=== PATIENT | female | born 1965 | race Caucasian/White ===

== ENCOUNTER → 2019-04-25 | Outpatient (CLI) | payer MEDICARE ==
--- NOTE | 2019-04-25 17:10 | PCVCIMAG ---
EXAM: BILATERAL SUPERFICIAL VENOUS DUPLEX INDICATION: Leg pain and swelling. FINDINGS: Right leg: No thrombus in the common femoral, main femoral, or popliteal veins. These veins are compressible. Right Great Saphenous Vein: At the saphenofemoral junction the diameter is 11.9 mm, in the mid thigh it is 8.1 mm, and in the calf it is 5.5 mm. There is significant venous insufficiency/reflux throughout. Venous insufficiency/reflux duration is 1.6 seconds. Right Small Saphenous Vein: At the saphenopopliteal junction the diameter is 6.4 mm, and in the calf it is 5.6 mm. There is significant venous insufficiency/reflux throughout. Venous insufficiency/reflux duration is 1.6 seconds. There is not a cranial extension present. Left leg: No thrombus in the common femoral, main femoral, or popliteal veins. These veins are compressible. Left Great Saphenous Vein: At the saphenofemoral junction the diameter is 10.2 mm, in the mid thigh it is 9.0 mm, and in the calf it is 7.6 mm. There is significant venous insufficiency/reflux throughout. Venous insufficiency/reflux duration is 1.6 seconds. Left Small Saphenous Vein: At the saphenopopliteal junction the diameter is 6.5 mm, and in the calf it is 5.7 mm. There is significant venous insufficiency/reflux throughout. Venous insufficiency/reflux duration is 2.3 seconds. There is not a cranial extension present. IMPRESSION: Right Great Saphenous Vein: Significant venous insufficiency/reflux is present as noted above. Right Small Saphenous Vein: Significant venous insufficiency/reflux is present as noted above. Left Great Saphenous Vein: Significant venous insufficiency/reflux is present as noted above. Left Small Saphenous Vein: Significant venous insufficiency/reflux is present as noted above. Incidental note is made of venous insufficiency/reflux in the main femoral and popliteal veins bilaterally with reflux duration up to 1.6 seconds. LOC:[id number]
== END | disposition home or self-care (01) ==
LOC: PCVCIMAG 14:02
PROVIDERS: ATTEND Family Medicine
DX: I87.2 Venous insufficiency (chronic) (peripheral) (principal); L97.929 Non-pressure chronic ulcer of unspecified part of left lower leg with unspecified severity; J44.9 Chronic obstructive pulmonary disease, unspecified; I10 Essential (primary) hypertension; Z78.0 Asymptomatic menopausal state; Z88.8 Allergy status to other drugs, medicaments and biological substances
CPT/HCPCS: 93970